=== PATIENT | male | born 1955 ===

== ENCOUNTER 2018-06-23 10:34 | Inpatient (IN) | payer BC, OTHER ==
--- NOTE | 2018-06-23 10:57 | C.PDOC ---
History Of Present Illness 62 y/o male presents to the ER for cellulitis to the right 4th finger which has been resent for the past few months. Patient stated that advised him to go the ER so he could have same day surgery today. Patient reports that his last meal was last night.Denies having fever, chills, and other complaint a this time. Time Seen by Provider: 06/23/18 10:50 Chief Complaint (Nursing): Abnormal Skin Integrity History Per: Patient History/Exam Limitations: no limitations Onset/Duration Of Symptoms: Days Current Symptoms Are (Timing): Still Present Severity: Moderate Past Medical History Reviewed: Historical Data, Nursing Documentation, Vital Signs Vital Signs: Last Vital Signs Temp 98.2 F 06/23/18 10:39 Pulse 56 L 06/23/18 10:39 Resp 18 06/23/18 10:39 BP 128/80 06/23/18 10:39 Pulse Ox 96 06/23/18 10:39 - Medical History PMH: HTN Other Surgeries: Hx of surgeries Family History: States: No Known Family Hx - Social History Hx Alcohol Use: Yes Hx Substance Use: No - Immunization History Hx Tetanus Toxoid Vaccination: No Hx Influenza Vaccination: Yes Hx Pneumococcal Vaccination: No Review Of Systems Except As Marked, All Systems Reviewed And Found Negative. Constitutional: Negative for: Fever, Chills Skin: Positive for: Other (cellulitis to right 4th finger) Physical Exam - Physical Exam Appears: Non-toxic, No Acute Distress Skin: Normal Color, Warm, Dry, Other (growth and infectious process to dorsal aspect of distal phalanx of right 4th finger) Head: Atraumatic, Normacephalic Eye(s): bilateral: Normal Inspection Nose: Normal Oral Mucosa: Moist Neck: Supple Chest: Symmetrical Cardiovascular: Rhythm Regular Respiratory: Normal Breath Sounds, No Rales, No Rhonchi, No Wheezing Gastrointestinal/Abdominal: Soft, No Tenderness, No Guarding, No Rebound Extremity: Normal ROM Neurological/Psych: Oriented x3, Normal Speech ED Course And Treatment - Laboratory Results Result Diagrams: 06/23/18 11:12 06/23/18 11:12 ECG: Interpreted By Me, Viewed By Me ECG Rhythm: Sinus Bradycardia Interpretation Of ECG: Sinus Bradycadia with RBBB, left anterior fascicular block, and no ST/ T wave abnormalities Rate From EC O2 Sat by Pulse Oximetry: 96 (RA) Pulse Ox Interpretation: Normal Medical Decision Making Medical Decision Making: Assessment: Cellulitis, Abscess Plan: --Labs Updates: 10:56 Case discussed with 's office. Patient has been admitted to [facility] under the service of . Disposition Discussed With : Naun Blackman Doctor Will See Patient In The: Hospital Counseled Patient/Family Regarding: Studies Performed, Diagnosis - Disposition Disposition: HOSPITALIZED Disposition Time: 10:57 Condition: FAIR - Clinical Impression Clinical Impression: Cellulitis, Abscess - Scribe Statement The provider has reviewed the documentation as recorded by the Romanaibe Kolby Emery Provider Attestation: All medical record entries made by the Scribe were at my direction and personally dictated by me. I have reviewed the chart and agree that the record accurately reflects my personal performance of the history, physical exam, medical decision making, and the department course for this patient. I have also personally directed, reviewed, and agree with the discharge instructions and disposition.
[2018-06-23 11:20] LABS: BASO # 0.1 K/uL (0.0-0.2); EOS # 0.4 K/uL (0.0-0.7); EOS % 7.4 % (0.0-4.0); HEMOGLOBIN 17.2 g/dL (12.0-18.0); LYMPH # 1.5 K/uL (1.0-4.3); LYMPH % 25.2 % (20.0-40.0); MEAN CORPUSCULAR HEMOGLOBIN 34.3 pg (27.0-31.0); MEAN CORPUSCULAR HGB CONC 33.5 g/dL (33.0-37.0); MEAN PLATELET VOLUME 10.5 fL (7.2-11.7); MONO # 0.6 K/uL (0.0-0.8); MONO % 10.9 % (0.0-10.0); NEUT # 3.2 K/uL (1.8-7.0); NEUT % 55.5 % (50.0-75.0); NRBC % 0.1 % (0.0-2.0); RBC 5.01 Mil/uL (4.40-5.90); WHITE BLOOD COUNT 5.8 K/uL (4.8-10.8)
[2018-06-23 11:22] LABS: MEAN CELL VOLUME 102.4 fL (80.0-94.0)
[2018-06-23 11:27] LABS: INR 1.2; PROTHROMBIN TIME 12.6 SECONDS (9.7-12.2)
[2018-06-23 11:33] LABS: ALB/GLOB RATIO 1.3 (1.0-2.1); ALBUMIN 4.5 g/dL (3.5-5.0); ALT/SGPT 39 U/L (21-72); AST/SGOT 44 U/L (17-59); BLOOD UREA NITROGEN 16 mg/dL (9-20); CALCIUM 9.5 mg/dl (8.6-10.4); GFR NON-AFRICAN AMERICAN > 60
[2018-06-23] MEDS ORDERED: ceFAZolin 1 gm in NS 2 GM/200 ML BAG IVPB ONE (12:57)
[2018-06-23] MEDS ORDERED: Lidocaine Hydrochloride 10 ML INJ ONE (12:57)
[2018-06-23] MEDS ORDERED: Bupivacaine 0.25% 20 ML INJ IJ ONE (12:57)
[2018-06-23] MEDS ORDERED: Midazolam 2 MG/2 ML VIAL ONE (13:44)
[2018-06-23] MEDS ORDERED: Propofol 10 mg/ml Inj (20 ML) ONE (13:44)
[2018-06-23] MEDS ORDERED: HYDROmorphone 0.5 mg/0.5 ml ISec IVP PRN (14:17)
--- NOTE | 2018-06-23 20:26 | CP.PCM.CON ---
<Christen Gillis - Last Filed: 06/24/18 00:06> History of Present Illness - History of Present Illness History of Present Illness: Medicine consult note CC "I feel fine" HPI: Patient is a 62 year old male with history of hypertension and hyperlipidemia who presented for abscess of right 4th digit. He states he has had prior abscess of his right finger before, his last I&D was reportedly in 2016. Patient is currently s/p I&D of abscess on right 4th finger. He currently states he has no complaints. He denies fevers, chills, headache, dizziness, chest pain, shortness of breath, palpitations, abdominal pain, nausea, vomiting, diarrhea, leg pain. PMH: HTN, HLD PSH: LLE fracture Social hx: Denies history of smoking, alcohol or drug use. Home meds: Bisprolol, unknown cholesterol med ([facility]) Allergies: NKDA Full code PMD: Dr. Lombardi Review of Systems - Constitutional Constitutional: absent: Chills, Fever, Headache - EENT Eyes: absent: Change in Vision, Loss of Vision Ears: absent: Dizziness Nose/Mouth/Throat: absent: Nasal Congestion, Sore Throat - Cardiovascular Cardiovascular: absent: Chest Pain, Dyspnea, Palpitations - Respiratory Respiratory: absent: Cough, Dyspnea - Gastrointestinal Gastrointestinal: absent: Abdominal Pain, Diarrhea, Nausea, Vomiting - Genitourinary Genitourinary: absent: Change in Urinary Stream, Difficulty Urinating, Dysuria - Musculoskeletal Musculoskeletal: absent: Back Pain - Neurological Neurological: absent: Headaches, Syncope, Vertigo - Psychiatric Psychiatric: absent: Anxiety, Depression Past Patient History - Infectious Disease Hx of Infectious Diseases: None - Past Social History Smoking Status: Never Smoked - CARDIAC Hx Hypertension: Yes - PSYCHIATRIC Hx Substance Use: No - SURGICAL HISTORY Hx Surgeries: Yes Hx Orthopedic Surgery: Yes - ANESTHESIA Hx Anesthesia: Yes Hx Anesthesia Reactions: No Hx Malignant Hyperthermia: No Meds Allergies/Adverse Reactions: Allergies Allergy/AdvReac Type Severity Reaction Status Date / Time cheese Allergy Verified 06/23/18 10:43 garlic Allergy Verified 06/23/18 10:43 melon Allergy Verified 06/23/18 10:43 onion Allergy Verified 06/23/18 10:43 - Medications Medications: Current Medications Docusate Sodium (Colace) 100 mg PO BID [facility] Cefazolin Sodium (Ancef) 1 gm in 50 mls @ 100 mls/hr IVPB Q8H [facility]; Protocol Ondansetron HCl (Zofran Inj) 4 mg IVP Q6 PRN PRN Reason: Nausea/Vomiting Oxycodone/Acetaminophen (Percocet 5/325 Mg Tab) 2 tab PO Q4H PRN PRN Reason: pain Stop: 06/26/18 14:18 Pantoprazole Sodium (Protonix Inj) 40 mg IVP DAILY [facility] Physical Exam - Constitutional Appears: Well, Non-toxic, No Acute Distress - Head Exam Head Exam: ATRAUMATIC, NORMOCEPHALIC - Eye Exam Eye Exam: EOMI, PERRL. absent: Conjunctival injection, Periorbital swelling - ENT Exam ENT Exam: Mucous Membranes Moist, Normal Oropharynx - Neck Exam Neck exam: Positive for: Full Rom. Negative for: Lymphadenopathy, Tenderness, Thyromegaly - Respiratory Exam Respiratory Exam: Clear to Auscultation Bilateral, NORMAL BREATHING PATTERN. absent: Rales, Rhonchi, Wheezes, Respiratory Distress, Stridor - Cardiovascular Exam Cardiovascular Exam: REGULAR RHYTHM, +S1, +S2. absent: Gallop, Rubs, Systolic Murmur - GI/Abdominal Exam GI & Abdominal Exam: Normal Bowel Sounds, Soft. absent: Distended, Firm, Guarding, Rigid, Tenderness - Extremities Exam Extremities exam: Positive for: normal capillary refill, pedal pulses present. Negative for: calf tenderness, pedal edema - Back Exam Back exam: absent: CVA tenderness (L), CVA tenderness (R), vertebral tenderness - Neurological Exam Neurological exam: Alert, Oriented x3 - Psychiatric Exam Psychiatric exam: Normal Affect, Normal Mood - Skin Additional comments: Right 4th digit wrapped status post incision and drainage of abscess Results - Vital Signs Recent Vital Signs: Last Vital Signs Temp 97.8 F 06/23/18 16:45 Pulse 50 L 06/23/18 16:45 Resp 20 06/23/18 16:45 BP 127/76 06/23/18 16:45 Pulse Ox 97 06/23/18 16:45 - Labs Result Diagrams: 06/23/18 11:12 06/23/18 11:12 Labs: Laboratory Results - last 24 hr 06/23/18 06/23/18 06/23/18 11:12 11:12 11:12 WBC 5.8 RBC 5.01 Hgb 17.2 Hct 51.3 H MCV 102.4 H D MCH 34.3 H MCHC 33.5 RDW 14.0 Plt Count 168 MPV 10.5 Neut % (Auto) 55.5 Lymph % (Auto) 25.2 [place] % (Auto) 10.9 H Eos % (Auto) 7.4 H Baso % (Auto) 1.0 Neut # (Auto) 3.2 Lymph # (Auto) 1.5 [place] # (Auto) 0.6 Eos # (Auto) 0.4 Baso # (Auto) 0.1 PT 12.6 H INR 1.2 APTT 33 Sodium 136 Potassium 4.2 Chloride 99 Carbon Dioxide 26 Anion Gap 15 BUN 16 Creatinine 0.8 Est GFR ( Amer) > 60 Est GFR (Non-Af Amer) > 60 POC Glucose (mg/dL) Random Glucose 148 H D Calcium 9.5 Total Bilirubin 1.1 AST 44 ALT 39 Alkaline Phosphatase 79 Total Protein 8.0 Albumin 4.5 Globulin 3.5 Albumin/Globulin Ratio 1.3 06/23/18 11:21 WBC RBC Hgb Hct MCV MCH MCHC RDW Plt Count MPV Neut % (Auto) Lymph % (Auto) [place] % (Auto) Eos % (Auto) Baso % (Auto) Neut # (Auto) Lymph # (Auto) [place] # (Auto) Eos # (Auto) Baso # (Auto) PT INR APTT Sodium Potassium Chloride Carbon Dioxide Anion Gap BUN Creatinine Est GFR ( Amer) Est GFR (Non-Af Amer) POC Glucose (mg/dL) 137 H Random Glucose Calcium Total Bilirubin AST ALT Alkaline Phosphatase Total Protein Albumin Globulin Albumin/Globulin Ratio Assessment & Plan - Assessment and Plan (Free Text) Assessment: 62 year old male with history of hypertension, hyperlipidemia who presented for I&D of right 4th digit abscess. Plan: Abscess of Right 4th digit cellulitis Status post incision and drainage Surgery Dr. Blackman on case f/u wound culture Currently afebrile Ancef 1g IV q8 colace 100mg PO BID Zofrn 4mg IV Q6 PRN Percocet 2 tab Q4 PRN Hx of Hypertension Bisoprolol 10mg PO Confirm dose with pharmacy Continue to monitor Hx of Hyperlipidemia Unknown med Confirm with [facility] pharmacy PPX: DVT: SCDs GI: Protonix Case discussed with Dr. Vannesa Gillis, PGY1 <Kel Granado - Last Filed: 06/24/18 06:43> Meds - Medications Medications: Current Medications Bisoprolol Fumarate (Zebeta) 10 mg PO DAILY [facility] Docusate Sodium (Colace) 100 mg PO BID [facility] Last Admin: 06/23/18 21:53 Dose: Not Given Cefazolin Sodium (Ancef) 1 gm in 50 mls @ 100 mls/hr IVPB Q8H [facility]; Protocol Last Admin: 06/24/18 05:12 Dose: 100 mls/hr Ondansetron HCl (Zofran Inj) 4 mg IVP Q6 PRN PRN Reason: Nausea/Vomiting Oxycodone/Acetaminophen (Percocet 5/325 Mg Tab) 2 tab PO Q4H PRN PRN Reason: pain Stop: 06/26/18 14:18 Last Admin: 06/23/18 21:29 Dose: 2 tab Pantoprazole Sodium (Protonix Inj) 40 mg IVP DAILY [facility] Results - Vital Signs Recent Vital Signs: Last Vital Signs Temp 97.9 F 06/23/18 23:35 Pulse 55 L 06/23/18 23:35 Resp 20 06/23/18 23:35 BP 118/70 06/23/18 23:35 Pulse Ox 96 06/23/18 23:35 - Labs Result Diagrams: 06/23/18 11:12 06/23/18 11:12 Labs: Laboratory Results - last 24 hr 06/23/18 06/23/18 06/23/18 11:12 11:12 11:12 WBC 5.8 RBC 5.01 Hgb 17.2 Hct 51.3 H MCV 102.4 H D MCH 34.3 H MCHC 33.5 RDW 14.0 Plt Count 168 MPV 10.5 Neut % (Auto) 55.5 Lymph % (Auto) 25.2 [place] % (Auto) 10.9 H Eos % (Auto) 7.4 H Baso % (Auto) 1.0 Neut # (Auto) 3.2 Lymph # (Auto) 1.5 [place] # (Auto) 0.6 Eos # (Auto) 0.4 Baso # (Auto) 0.1 PT 12.6 H INR 1.2 APTT 33 Sodium 136 Potassium 4.2 Chloride 99 Carbon Dioxide 26 Anion Gap 15 BUN 16 Creatinine 0.8 Est GFR ( Amer) > 60 Est GFR (Non-Af Amer) > 60 POC Glucose (mg/dL) Random Glucose 148 H D Calcium 9.5 Total Bilirubin 1.1 AST 44 ALT 39 Alkaline Phosphatase 79 Total Protein 8.0 Albumin 4.5 Globulin 3.5 Albumin/Globulin Ratio 1.3 06/23/18 06/23/18 11:21 17:10 WBC RBC Hgb Hct MCV MCH MCHC RDW Plt Count MPV Neut % (Auto) Lymph % (Auto) [place] % (Auto) Eos % (Auto) Baso % (Auto) Neut # (Auto) Lymph # (Auto) [place] # (Auto) Eos # (Auto) Baso # (Auto) PT INR APTT Sodium Potassium Chloride Carbon Dioxide Anion Gap BUN Creatinine Est GFR ( Amer) Est GFR (Non-Af Amer) POC Glucose (mg/dL) 137 H 113 H Random Glucose Calcium Total Bilirubin AST ALT Alkaline Phosphatase Total Protein Albumin Globulin Albumin/Globulin Ratio Assessment & Plan - Date & Time Date: 06/24/18 (I have seen and examined the patient. I agree with the findings and plan of care as documented by Dr. Gillis. Patient with abscess/cellulitis of 4th digit. I&D by Surgery. Ancef. To be managed by surgery. History of hypertension and hyperlipidemia. Continue home meds when known. Contact patient's pharmacy for names and dosages. Monitor for acute changes.) Time: 06:41 Attending/Attestation - Attestation I have personally seen and examined this patient.: Yes I have fully participated in the care of the patient.: Yes I have reviewed all pertinent clinical information: Yes
[2018-06-23] MEDS: ceFAZolin 1 gm FROZEN Premix 1 GM/50 ML ML IVPB SCH (21:23)
[2018-06-23] MEDS: Oxycodone/Acetaminophen 5/325 mg Tab PO PRN (21:29)
[2018-06-24] MEDS: ceFAZolin 1 gm FROZEN Premix 1 GM/50 ML ML IVPB SCH (05:12)
--- NOTE | 2018-06-24 07:35 | CP.PCM.PN ---
Subjective - Date & Time of Evaluation Date of Evaluation: 06/24/18 Time of Evaluation: 07:35 - Subjective Subjective: PGY-1 Medicine Progress Note for Dr. Betancourt Patient seen and examined at bedside this AM, in no acute distress. No overnight events reported. Patient endorses some tenderness to his R 4th finger, otherwise no acute somatic complaints. Patient was agitated by "so many doctors asking same thing, I'm ok". Per nursing, scheduled this afternoon for surgical debridement and culture. No fevers/chills, headaches, dizziness, chest pain, p alpitations, shortness of breath, cough, abdominal pain, n/v/d/c, dysuria or changes in stool. Objective - Vital Signs/Intake and Output Vital Signs (last 24 hours): Temp Pulse Resp BP Pulse Ox 97.9 F 55 L 20 118/70 96 06/23/18 23:35 06/23/18 23:35 06/23/18 23:35 06/23/18 23:35 06/23/18 23:35 Intake and Output: 06/24/18 06/24/18 06:59 18:59 Intake Total 750 Balance 750 - Medications Medications: Current Medications Bisoprolol Fumarate (Zebeta) 10 mg PO DAILY [facility] Docusate Sodium (Colace) 100 mg PO BID [facility] Last Admin: 06/23/18 21:53 Dose: Not Given Cefazolin Sodium (Ancef) 1 gm in 50 mls @ 100 mls/hr IVPB Q8H [facility]; Protocol Last Admin: 06/24/18 05:12 Dose: 100 mls/hr Ondansetron HCl (Zofran Inj) 4 mg IVP Q6 PRN PRN Reason: Nausea/Vomiting Oxycodone/Acetaminophen (Percocet 5/325 Mg Tab) 2 tab PO Q4H PRN PRN Reason: pain Stop: 06/26/18 14:18 Last Admin: 06/23/18 21:29 Dose: 2 tab Pantoprazole Sodium (Protonix Inj) 40 mg IVP DAILY [facility] - Labs Labs: 06/23/18 11:12 06/23/18 11:12 PT 12.6 SECONDS (9.7-12.2) H 06/23/18 11:12 INR 1.2 06/23/18 11:12 APTT 33 SECONDS (21-34) 06/23/18 11:12 - Constitutional Appears: Non-toxic, No Acute Distress - Head Exam Head Exam: ATRAUMATIC, NORMAL INSPECTION, NORMOCEPHALIC - Eye Exam Eye Exam: EOMI, Normal appearance, PERRL Pupil Exam: NORMAL ACCOMODATION - ENT Exam ENT Exam: Mucous Membranes Moist, Normal Exam - Neck Exam Neck Exam: Full ROM, Normal Inspection - Respiratory Exam Respiratory Exam: Clear to Ausculation Bilateral, NORMAL BREATHING PATTERN. a bsent: Accessory Muscle Use, Rales, Rhonchi, Wheezes, Respiratory Distress, Stridor - Cardiovascular Exam Cardiovascular Exam: REGULAR RHYTHM, +S1, +S2 - GI/Abdominal Exam GI & Abdominal Exam: Soft, Normal Bowel Sounds. absent: Distended, Firm, Guarding, Rigid, Tenderness, Rebound - Extremities Exam Extremities Exam: Full ROM, Normal Capillary Refill, Normal Inspection - Neurological Exam Neurological Exam: Alert, Awake, Oriented x3 - Psychiatric Exam Psychiatric exam: Normal Affect, Normal Mood - Skin Additional comments: Right 4th digit wrapped status post incision and drainage of abscess Assessment and Plan - Assessment and Plan (Free Text) Assessment: 62 year old male with past medical history of HTN, HLD, and past R 4th digit infection presenting with recurrent 4th digit abscess, s/p I&D. Patient scheduled for surgical debridement and wound culture this afternoon. No acute somatic complaints at this time. Plan: Abscess of Right 4th digit cellulitis s/p I&D -General Surgery (Dr. Blackman) on case -patient scheduled for surgical debridement and culture this afternoon -patient currently afebrile, no leukocytosis noted -f/u wound culture -Clindamycin 600 mg IVPB q8h to better cover possible MRSA infection -Percocet 2 tab q4 prn -colace 100 mg PO BID -zofran 4 mg IV q6h PRN Hx of Hypertension -BP is well controlled, continue to monitor -continue with Bisoprolol 10mg PO Hx of Hyperlipidemia -called patient's pharmacy ([facility]), no cholesterol medication was ever dispensed -patient to follow up with PMD (Dr. Cam) for lipid panel and need for medication PPx, Diet, Disposition DVT: SCDs GI: Protonix Diet: NPO Dispo: f/u wound culture. Barring resistance, patient to be discharged on Clindamycin 450 mg PO for a total of 7 days. Please reconsult as necessary. Thank you! Case discussed with Dr. Asia Tinsley DO, PGY-1
[2018-06-24 08:14] LABS: BASO % 0.9 % (0.0-2.0); EOS # 0.5 K/uL (0.0-0.7); EOS % 9.5 % (0.0-4.0); HEMOGLOBIN 16.2 g/dL (12.0-18.0); LYMPH # 1.8 K/uL (1.0-4.3); LYMPH % 34.3 % (20.0-40.0); MEAN CELL VOLUME 102.8 fL (80.0-94.0); MEAN CORPUSCULAR HEMOGLOBIN 34.7 pg (27.0-31.0); MEAN CORPUSCULAR HGB CONC 33.7 g/dL (33.0-37.0); MONO # 0.7 K/uL (0.0-0.8); MONO % 12.8 % (0.0-10.0); NEUT # 2.2 K/uL (1.8-7.0); NEUT % 42.5 % (50.0-75.0); NRBC % 0.1 % (0.0-2.0); RBC 4.66 Mil/uL (4.40-5.90); WHITE BLOOD COUNT 5.2 K/uL (4.8-10.8)
[2018-06-24 08:15] LABS: BLOOD UREA NITROGEN 15 mg/dL (9-20); CALCIUM 8.8 mg/dl (8.6-10.4); GFR NON-AFRICAN AMERICAN > 60
--- NOTE | 2018-06-24 12:11 | CARD ---
APPROVED REPORT Date of service: 06/23/2018 EKG Measurement Heart [id number] <Conclusion> Sinus bradycardia Right bundle branch block Left anterior fascicular block Bifascicular block Abnormal ECG
[2018-06-24] MEDS: Clindamycin 600mg/50ml NS 600 MG/50 ML BAG IVPB SCH ×2 (12:21→20:19)
[2018-06-24] MEDS ORDERED: ceFAZolin 1 gm FROZEN Premix 1 GM/50 ML ML IVPB ONE (13:31)
[2018-06-24] MEDS ORDERED: Bupivacaine 0.25% 20 ML INJ IJ ONE (13:31)
[2018-06-24] MEDS ORDERED: Lidocaine Hydrochloride 10 ML INJ ONE (13:31)
[2018-06-24] MEDS ORDERED: Midazolam 2 MG/2 ML VIAL ONE (14:02)
[2018-06-24] MEDS ORDERED: Propofol 10 mg/ml Inj (20 ML) ONE (14:02)
[2018-06-24] MEDS ORDERED: HYDROmorphone 0.5 mg/0.5 ml ISec IVP PRN (14:40)
[2018-06-24] MEDS ORDERED: Lactated Ringer's 1,000 ML IV SCH (14:45)
[2018-06-24] MEDS: Fluticasone Nasal 50 mcg/Spray NAS SCH (20:17)
[2018-06-24] MEDS: Oxycodone/Acetaminophen 5/325 mg Tab PO PRN (21:37)
[2018-06-25 02:00] VITALS: RESP 20
[2018-06-25] MEDS: Clindamycin 600mg/50ml NS 600 MG/50 ML BAG IVPB SCH (04:00)
[2018-06-25 08:03] VITALS: BP 132/83; PULSE 65; TEMP 97.8; O2SAT 95
[2018-06-25] MEDS: Fluticasone Nasal 50 mcg/Spray NAS SCH (09:38)
[2018-06-25] MEDS ORDERED: Fluticasone Nasal 50 mcg/Spray NAS SCH (10:00)
--- NOTE | 2018-06-27 12:16 | OP ---
PROCEDURE DATE: 06/24/2018 POSTOPERATIVE DIAGNOSIS: Infected mass of the right fourth finger, status post wide and deep excision. POSTOPERATIVE DIAGNOSIS: Infected mass of the right fourth finger, status post wide and deep excision. PROCEDURE PERFORMED: Re-excision of infected mass right fourth finger with debridement and tissue flap closure. SURGEON: Naun Blackman MD ANESTHESIA: Local with a digital block. ESTIMATED BLOOD LOSS: 10 mL. POSTOPERATIVE CONDITION: Stable. INDICATION FOR SURGERY: Staged procedure, the patient was taken back to the OR where he had removal of infected mass yesterday. Portion of wound was left open to undergo additional packing change completion closure today. DESCRIPTION OF PROCEDURE: The patient was taken to the operating room, placed in supine position, IV sedation was administered. The right forearm, hand and fingers were prepped and draped. A digital block was administered. The wound was debrided and reexcised down to good clean tissue. Bleeding was controlled using the Bovie. The wound was then pulse irrigated with saline solution. Tissue flaps and counter incisions were made and a smaller flap closure was performed, an open area, the wound was then dressed with bacitracin and dry sterile dressing. The patient tolerated the procedure well and returned to recovery room in stable condition. Naun Blackman MD
--- NOTE | 2018-06-27 12:17 | OP ---
PROCEDURE DATE: 06/23/2018 PREOPERATIVE DIAGNOSIS: Infected mass of the right fourth finger. POSTOPERATIVE DIAGNOSIS: Infected mass of the right fourth finger. PROCEDURES PERFORMED: Wide and deep excision of infected mass of the right fourth finger and partial tissue flap closure. SURGEON: Naun Blackman MD ANESTHESIA: General. BLOOD LOSS: 15 mL. POSTOPERATIVE CONDITION: Stable. INDICATIONS FOR SURGERY: This is a 62-year-old male who underwent resection of a cyst of his right fourth finger two years ago. It has recurred and become infected and occasionally drains pus and now presents for definitive surgical therapy. DESCRIPTION OF PROCEDURE: The patient was taken to the operating room, general anesthesia administered. The right hand finger was prepped and draped. IV sedation was administered as well as a digital block and an elliptical incision was made surrounding the mass over the dorsal aspect of the DIP joint. The mass was carried down into the fascial layer. Bleeding was controlled using the Bovie. Tissue flaps and counter incisions were made. A partial tissue flap closure was performed after the wound was pulse irrigated and cultured. Central portion was packed open with saline gauze and dressed sterilely. The patient tolerated the procedure well and returned to recovery room in stable condition. Naun Blackman MD
== END 2018-06-25 10:00 | disposition home or self-care (01) | DRG 574 ==
LOC: C.ER 10:34 → C.6T 10:34 → C.SDS 11:18 → C.6T 14:14
PROVIDERS: ADMIT Surgery; ATTEND Surgery
PROC: 0JBJ0ZZ Excision of Right Hand Subcutaneous Tissue and Fascia, Open Approach (ICD-10-PCS; 2018-06-23)
PROC: 0JXJ0ZB Transfer Right Hand Subcutaneous Tissue and Fascia with Skin and Subcutaneous Tissue, Open Approach (ICD-10-PCS; 2018-06-23)
PROC: 0JXJ0ZB Transfer Right Hand Subcutaneous Tissue and Fascia with Skin and Subcutaneous Tissue, Open Approach (ICD-10-PCS; principal; 2018-06-24 13:30)
DX: L03.011 Cellulitis of right finger (principal); L02.511 Cutaneous abscess of right hand; I10 Essential (primary) hypertension; E78.5 Hyperlipidemia, unspecified

== ENCOUNTER 2018-07-13 10:09 | Inpatient (IN) | payer OTHER ==
--- NOTE | 2018-07-13 11:21 | RAD ---
HISTORY: PREOP COMPARISON: Chest x-ray performed 03/31/16 TECHNIQUE: Chest, one view. FINDINGS: Examination limited by habitus. LUNGS: No focal consolidation. Please note that chest x-ray has limited sensitivity for the detection of pulmonary masses. PLEURA: No significant pleural effusion identified. No definite pneumothorax . CARDIOVASCULAR: Heart size appears within limits. Faint atherosclerotic calcifications. OSSEOUS STRUCTURES: Degenerative changes. VISUALIZED UPPER ABDOMEN: Mild elevation of the right hemidiaphragm. OTHER FINDINGS: None. IMPRESSION: No focal consolidation.
--- NOTE | 2018-07-13 11:42 | C.PDOC ---
History Of Present Illness 63 year old male sent to the ED by Dr. Blackman for surgical removal of masses/nodules on his bilateral 2nd digits. Patient states he has had these masses for several years. He recently saw Dr. Blackman in office, and was instructed to come and have them surgically removed. Patient denies fever, chills, falls/injuries, sensory changes. PMHx of HTN Time Seen by Provider: 07/13/18 10:42 Chief Complaint (Nursing): Finger,Hand,&Wrist History Per: Patient History/Exam Limitations: no limitations Onset/Duration Of Symptoms: Days Current Symptoms Are (Timing): Still Present Additional History Per: Patient Past Medical History Reviewed: Historical Data, Nursing Documentation, Vital Signs Vital Signs: Last Vital Signs Temp 97.8 F 07/13/18 10:33 Pulse 54 L 07/13/18 10:33 Resp 18 07/13/18 10:33 BP 126/76 07/13/18 10:33 Pulse Ox 97 07/13/18 10:33 - Medical History PMH: HTN Denies: Chronic Kidney Disease Surgical History: No Surg Hx - [facility] Procedures EXCISION OF R HAND SUBCU/FASCIA, OPEN APPROACH (06/23/18) TRANSFER R HAND SUBCU/FASCIA WITH SKIN, SUBCU, OPEN APPROACH (06/23/18) Family History: States: Unknown Family Hx - Social History Hx Alcohol Use: No Hx Substance Use: No - Immunization History Hx Tetanus Toxoid Vaccination: No Hx Influenza Vaccination: Yes Hx Pneumococcal Vaccination: No Review Of Systems Constitutional: Negative for: Fever, Chills Skin: Positive for: Other (masses to bilateral fingers ) Neurological: Negative for: Weakness, Numbness Physical Exam - Physical Exam Appears: Non-toxic, No Acute Distress Skin: Warm, Dry, Other (multiple small, hard nodules to the dorsal aspects of bilateral second digits. no erythema, fluctuance, or induration ) Head: Atraumatic, Normacephalic Eye(s): bilateral: Normal Inspection Oral Mucosa: Moist Neck: Supple Chest: Symmetrical, No Deformity, No Tenderness Cardiovascular: Rhythm Regular, No Murmur Respiratory: Normal Breath Sounds, No Rales, No Rhonchi, No Wheezing Extremity: Normal ROM, No Tenderness, Capillary Refill (less than 2 seconds ), No Swelling Neurological/Psych: Oriented x3, Normal Speech, Normal Cognition, Normal Sensation ED Course And Treatment - Laboratory Results Result Diagrams: 07/13/18 11:40 07/13/18 11:40 ECG: Interpreted By Me, Viewed By Me (sinus bradycardia 48 bpm, left axis deviation, RBBBB, LAFB, no acute ST changes - same as old EKG 03/31/16) ECG Interpretation: Abnormal O2 Sat by Pulse Oximetry: 97 (on RA ) Pulse Ox Interpretation: Normal - Radiology CXR: Interpreted by Me, Viewed By Me CXR Interpretation: Yes: No Acute Disease. No: Infiltrates Progress Note: Bloodwork, EKG, and CXR ordered and reviewed. Spoke with aneshtesiologist Dr. Ro, she is aware of EKG findings (same as old EKG in 2016). Disposition - Disposition - Scribe Statement The provider has reviewed the documentation as recorded by the Scribe Provider Attestation: All medical record entries made by the Scribe were at my direction and personally dictated by me. I have reviewed the chart and agree that the record accurately reflects my personal performance of the history, physical exam, medical decision making, and the department course for this patient. I have also personally directed, reviewed, and agree with the discharge instructions and disposition.
[2018-07-13 11:49] LABS: BASO # 0.1 K/uL (0.0-0.2); BASO % 1.1 % (0.0-2.0); EOS # 0.3 K/uL (0.0-0.7); EOS % 4.9 % (0.0-4.0); HEMOGLOBIN 17.2 g/dL (12.0-18.0); LYMPH # 1.3 K/uL (1.0-4.3); LYMPH % 22.9 % (20.0-40.0); MEAN CELL VOLUME 102.2 fL (80.0-94.0); MEAN CORPUSCULAR HEMOGLOBIN 34.1 pg (27.0-31.0); MEAN CORPUSCULAR HGB CONC 33.4 g/dL (33.0-37.0); MEAN PLATELET VOLUME 11.1 fL (7.2-11.7); MONO # 0.6 K/uL (0.0-0.8); MONO % 10.8 % (0.0-10.0); NEUT # 3.4 K/uL (1.8-7.0); NEUT % 60.3 % (50.0-75.0); NRBC % 0.1 % (0.0-2.0); RBC 5.05 Mil/uL (4.40-5.90); RED CELL DISTRIBUTION WIDTH 14.1 % (11.5-14.5); WHITE BLOOD COUNT 5.7 K/uL (4.8-10.8)
[2018-07-13 11:59] LABS: INR 1.1; PROTHROMBIN TIME 12.4 SECONDS (9.7-12.2)
[2018-07-13 12:11] LABS: ALB/GLOB RATIO 1.3 (1.0-2.1); ALBUMIN 4.6 g/dL (3.5-5.0); ALT/SGPT 49 U/L (21-72); AST/SGOT 54 U/L (17-59); BLOOD UREA NITROGEN 20 mg/dL (9-20); CALCIUM 9.2 mg/dl (8.6-10.4); GFR NON-AFRICAN AMERICAN > 60
[2018-07-13] MEDS ORDERED: HYDROmorphone 0.5 mg/0.5 ml ISec IVP PRN (13:03)
[2018-07-13] MEDS ORDERED: ceFAZolin IV 1 gm in Dextrose 1 GM/50 ML BAG IVPB ONE (13:51)
[2018-07-13] MEDS ORDERED: Lidocaine Hydrochloride 10 ML INJ ONE (13:52)
[2018-07-13] MEDS ORDERED: Bupivacaine 0.25% 20 ML INJ IJ ONE (13:52)
[2018-07-13] MEDS ORDERED: Midazolam 2 MG/2 ML VIAL ONE (14:34)
[2018-07-13] MEDS ORDERED: Propofol 10 mg/ml Inj (20 ML) ONE (14:35)
[2018-07-13] MEDS ORDERED: Bacitracin 500 Units/gm Oint Foilpak UD ONE (15:14)
[2018-07-13] MEDS ORDERED: Acetaminophen-Codeine 300/30 mg Tab PO PRN (15:46)
--- NOTE | 2018-07-13 19:31 | OP ---
PROCEDURE DATE: 07/13/2018 PREOPERATIVE DIAGNOSIS: Bilateral infected masses of both index fingers. POSTOPERATIVE DIAGNOSIS: Bilateral infected masses of both index fingers. PROCEDURE PERFORMED: Wide and deep excision of bilateral index finger masses with tissue flap closures. SURGEON: Naun Blackman MD ANESTHESIA: Local sedation. BLOOD LOSS: 10 mL. POSTOPERATIVE CONDITION: Stable. INDICATIONS FOR SURGERY: A 63-year-old male status post removal of a right fourth digit mass, which was removed due to increasing pain. He now has two similar masses of both index fingers, which will be moved today. They were both erythematous and possibly infected. DESCRIPTION OF PROCEDURE: The patient was taken to the operating room. anesthesia was administered. Both distal forearms, hands and fingers were prepped and draped. Attention was first turned to the left index finger over the DIP joint. An elliptical incision was made surrounding the mass. The mass was excised into the joint cavity. Bleeding was controlled using the Bovie. Digital blood vessel was repaired. The wound was irrigated with copious amounts of saline solution. Generous full-thickness tissue flaps were raised. Counterincisions were made. An advancement flap closure was performed. The skin was closed with nylon. The above was repeated in the right index finger. The patient tolerated the procedure well, returned to the recovery room in stable condition. Naun Blackman MD
[2018-07-13] MEDS: ceFAZolin IV 1 gm in Dextrose 1 GM/50 ML BAG IVPB SCH (22:00)
[2018-07-14] MEDS: ceFAZolin IV 1 gm in Dextrose 1 GM/50 ML BAG IVPB SCH (05:45)
[2018-07-14 07:03] VITALS: RESP 12
[2018-07-14 08:30] VITALS: BP 116/72; PULSE 62; TEMP 98.1; O2SAT 98
--- NOTE | 2018-07-16 17:38 | CARD ---
APPROVED REPORT Date of service: 07/13/2018 EKG Measurement Heart [id number] <Conclusion> Sinus bradycardia Possible Left atrial enlargement Right bundle branch block Left anterior fascicular block Bifascicular block Abnormal ECG
== END 2018-07-14 09:25 | disposition home or self-care (01) | DRG 581 ==
LOC: C.ER 10:09 → C.9P 10:09 → C.SDS 12:21 → C.9S 15:39 → C.9P 23:04
PROVIDERS: ADMIT Surgery; ATTEND Surgery
PROC: 0JBJ0ZZ Excision of Right Hand Subcutaneous Tissue and Fascia, Open Approach (ICD-10-PCS; 2018-07-13)
PROC: 0JBK0ZZ Excision of Left Hand Subcutaneous Tissue and Fascia, Open Approach (ICD-10-PCS; principal; 2018-07-13 16:15)
DX: L57.0 Actinic keratosis (principal); R22.33 Localized swelling, mass and lump, upper limb, bilateral; B07.9 Viral wart, unspecified; I10 Essential (primary) hypertension